=== PATIENT | male | born 1965 | race Caucasian/White ===

== ENCOUNTER → 2017-03-10 | Outpatient (CLI) | payer MEDICARE ==
--- NOTE | 2017-03-10 14:40 | MR ---
EXAMINATION TYPE: MR lumbar spine wo/w con DATE OF EXAM: 03/10/2017 COMPARISON: NONE HISTORY: Low back pain Contrast: 9 mL Gadavist TECHNIQUE: T1 and T2 axial and sagittal images of the lumbar spine are submitted. FINDINGS: There is no abnormal signal seen within the visualized spinal cord or paraspinal soft tissu es. Artifact from postsurgical change L4-5 and L5-S1 with discogenic marrow changes. At L1-2 there is mild hypertrophic changes of the facets. No canal stenosis, disc herniation or janey inal encroachment. At L2-3 there is more moderate facet arthropathy with no disc herniation or canal stenosis. Neural fo ramina patent. At L3-4 there is advanced facet arthropathy with ligamentum flavum hypertrophy. This results in mild foraminal encroachment bilaterally but no canal stenosis. No focal disc herniation. Small vertebral b frederick hemangioma of L3. At L4-5 there is postsurgical changes appears to be signal paracentrally to the right of the spinal c anal which may represent granulation or scar tissue. Neural foramina remain patent with no canal sten osis. At L5-S1 there is postsurgical changes. Neural foramina patent. No Canal stenosis. No disc herniation . Central and right paracentral signal is most typical of granulation or scar tissue. IMPRESSION: 1. Postsurgical changes with areas of signal noted paracentrally the right at L4-5 and L5-S1 which ar e felt to be most likely related to granulation tissue or scar and stable from the prior exam. 2. Multilevel facet arthropathy with most marked findings at L3-L4 results in mild bilateral foramina l encroachment.
== END | disposition home or self-care (01) ==
LOC: RADMRIMAIN 13:06
PROVIDERS: ATTEND Psychiatry & Neurology Neurology
DX: M46.86 Other specified inflammatory spondylopathies, lumbar region (principal); R93.7 Abnormal findings on diagnostic imaging of other parts of musculoskeletal system; M54.5 Low back pain; Z98.890 Other specified postprocedural states
CPT/HCPCS: 72158; A9581